=== PATIENT | male | born 1975 | race Caucasian/White ===

== ENCOUNTER 2021-10-16 22:10 | Emergency (ER) | payer MEDICAID ==
[~2021-10-16] VITALS: Ht 167.6 cm; Wt 91.0 kg
[2021-10-16] MEDS ORDERED: PREDNISONE 20MG TABLET PO ONE (22:45)
[2021-10-16 23:30] LABS: EOSINOPHILS % 11.3 % (0.0-5.0); HEMATOCRIT. 45.9 % (42.0-52.0); LYMPHOCYTES % 35.2 % (20.0-50.0); MEAN CORPUSCULAR HEMOGLOBIN 32.6 pg (28.0-32.0); MEAN CORPUSCULAR VOLUME 93.5 fL (80.0-94.0); MEAN PLATELET VOLUME 8.1 fl (7.4-10.4); MONOCYTES % 4.7 % (2.0-8.0); NEUTROPHILS % 47.8 % (40.0-76.0); PLATELET 338 x1000/uL (130-400); RED BLOOD CELL COUNT 4.91 mill/uL (4.7-6.1); RED CELL DISTRIBUTION WIDTH 12.5 % (11.6-14.6)
[2021-10-16 23:33] LABS: CHLORIDE 108 mEq/L (98-107)
[2021-10-17] MEDS ORDERED: SODIUM CHLORIDE 0.9% 1,000 ML IV ONE (01:30)
[2021-10-17] MEDS ORDERED: IOHEXOL-350 100 ML BOTTLE ONE (03:06)
[2021-10-17 04:20] VITALS: BP 152/90
[2021-10-17] MEDS ORDERED: ALBU6.7H9 INH (04:27)
[2021-10-17] MEDS ORDERED: PRED10TA MT (04:27)
== END 2021-10-17 04:40 | disposition home or self-care (01) ==
LOC: ER 22:10
DX: J40 Bronchitis, not specified as acute or chronic (principal); R07.89 Other chest pain
CPT/HCPCS: 36415; 71045; 71275; 80053; 83880; 84484; 85025; 85379; 93005; 96360; 99285; J7512; Q9967